=== PATIENT | female | born 1950 | race American Indian/Alaskan Native ===

== ENCOUNTER 2017-08-13 12:13 | Emergency (ER) | payer MEDICARE ==
[2017-08-13 12:52] LABS: Hematocrit 43.6 % (30.3-42.9); Hemoglobin 14.2 gm/dl (10.1-14.3); Mean Corpuscular HGB Conc 33 % (30-34); Mean Corpuscular Hemoglobin 28 pg (28-32); Mean Corpuscular Volume 86 fl (79-97); Platelet Count 261 K/mm3 (140-440); Red Blood Count 5.08 M/mm3 (3.65-5.03); Red Cell Distribution Width 14.9 % (13.2-15.2); White Blood Count 11.3 K/mm3 (4.5-11.0)
[2017-08-13 13:11] LABS: Alanine Aminotransferase 14 units/L (7-56); Albumin 4.4 g/dL (3.9-5); Albumin/Globulin Ratio 1.1 %; Alkaline Phosphatase 69 units/L (35-129); Anion Gap 22 mmol/L; BUN/Creatinine Ratio 26; Blood Urea Nitrogen 26 mg/dL (7-17); Calcium 9.9 mg/dL (8.4-10.2); Carbon Dioxide 23 mmol/L (22-30); Chloride 96.1 mmol/L (98-107); Glucose 201 mg/dL (65-100); Lipase 27 units/L (13-60); Potassium 3.8 mmol/L (3.6-5.0); Sodium 137 mmol/L (137-145); Total Protein 8.4 g/dL (6.3-8.2)
[2017-08-13 14:25] LABS: Blastocytes % (Manual) 0 %
[2017-08-13 14:26] LABS: Anisocytosis 1+; Diff Status Complete; Platelet Estimate Consistent w Auto
--- NOTE | 2017-08-13 16:34 | Emergency Department Report ---
ED Abdominal Pain HPI - General Chief Complaint: Abdominal Pain Stated Complaint: ABD PAINS Time Seen by Provider: 08/13/17 16:24 Source: patient Mode of arrival: Ambulatory Limitations: No Limitations - History of Present Illness Initial Comments: Patient is a 66 years old female coming today with abdominal pain that started this morning while she was at [employer]. Patient described her pain as right upper quadrant pain started all of a sudden moved to her left upper quadrant. Patient stated she had multiple episode of the same pain in the last few weeks but she did not seek any medical attention for it because it usually will go away by itself. Patient denied nausea vomiting or diarrhea. Denied any urinary symptoms and no fever. MD Complaint: abdominal pain -: Sudden, This morning Location: LUQ, RUQ Radiation: none Migration to: no migration Quality: stabbing Improves With: movement - Related Data Allergies Allergy/AdvReac Type Severity Reaction Status Date / Time No Known Allergies Allergy Verified 08/13/17 12:25 ED Review of Systems ROS: Stated complaint: ABD PAINS Other details as noted in HPI Comment: All other systems reviewed and negative Constitutional: denies: chills, fever Respiratory: denies: cough, orthopnea, shortness of breath, SOB with exertion Cardiovascular: palpitations. denies: chest pain, dyspnea on exertion, syncope , paroxysmal nocturnal dyspnea Gastrointestinal: abdominal pain. denies: nausea, vomiting, diarrhea, constipation, hematemesis, melena, hematochezia Genitourinary: denies: urgency, dysuria, frequency, hematuria Neurological: denies: headache, weakness, numbness, paresthesias ED Past Medical Hx - Past Medical History Previous Medical History?: Yes Hx Hypertension: Yes Hx Diabetes: Yes Additional medical history: back problems - Surgical History Past Surgical History?: Yes Additional Surgical History: left shoulder, left knee,thumb - Social History Smoking Status: Never Smoker Substance Use Type: None ED Physical Exam - General Limitations: No Limitations General appearance: alert, in no apparent distress - Head Head exam: Present: normocephalic - ENT ENT exam: Present: normal exam - Neck Neck exam: Present: normal inspection. Absent: tenderness, meningismus - Respiratory Respiratory exam: Present: normal lung sounds bilaterally. Absent: respiratory distress, wheezes, rales, rhonchi, chest wall tenderness, decreased breath sounds - Cardiovascular Cardiovascular Exam: Present: tachycardia. Absent: systolic murmur, diastolic murmur - GI/Abdominal GI/Abdominal exam: Present: soft, tenderness (diffuse tenderness), normal bowel sounds. Absent: distended, guarding, rebound, rigid, hyperactive bowel sounds, mass, bruit, pulsatile mass, hernia - Extremities Exam Extremities exam: Present: normal inspection, full ROM, normal capillary refill - Back Exam Back exam: Present: normal inspection. Absent: CVA tenderness (R), CVA tenderness (L) - Neurological Exam Neurological exam: Present: alert, oriented X3, CN II-XII intact, normal gait - Skin Skin exam: Present: warm, normal color. Absent: dry, intact ED Course Vital Signs 08/13/17 08/13/17 08/13/17 12:19 13:24 13:30 Temperature 97.7 F Pulse Rate 110 H 121 H 108 H Respiratory 20 21 17 Rate Blood Pressure 120/85 131/103 O2 Sat by Pulse 97 96 Oximetry 08/13/17 08/13/17 08/13/17 13:46 14:00 14:16 Temperature Pulse Rate 106 H 104 H 98 H Respiratory 12 16 17 Rate Blood Pressure 105/76 114/71 114/71 O2 Sat by Pulse 94 96 93 Oximetry 08/13/17 08/13/17 08/13/17 14:28 14:30 15:24 Temperature 97.8 F Pulse Rate Respiratory 12 Rate Blood Pressure 114/71 O2 Sat by Pulse 94 94 Oximetry 08/13/17 08/13/17 08/13/17 15:30 15:46 16:00 Temperature Pulse Rate Respiratory 17 13 13 Rate Blood Pressure 111/62 111/62 O2 Sat by Pulse 93 99 99 Oximetry - Reevaluation(s) Reevaluation #1: 08/13/17 19:09 Patient stated that she is feeling much better. Her abdominal pain is completely resolved. ED Medical Decision Making - Lab Data Result diagrams: 08/13/17 12:30 08/13/17 12:30 - EKG Data -: EKG Interpreted by Me EKG shows normal: sinus rhythm - EKG Data Interpretation: no acute changes - Radiology Data Radiology results: report reviewed CT abdomen and pelvis unremarkable for acute finding Critical care attestation.: If time is entered above; I have spent that time in minutes in the direct care of this critically ill patient, excluding procedure time. ED Disposition Clinical Impression: Abdominal pain, UTI (urinary tract infection), Constipation Disposition: - TO HOME OR SELFCARE Is pt being admited?: No Condition: Stable Instructions: Abdominal Pain (ED), Constipation (ED), High Fiber Diet (ED), Urinary Tract Infection in Women (ED) Referrals: PRIMARY CARE,MD [Primary Care Provider] - 3-5 Days
--- NOTE | 2017-08-13 18:08 | Cat Scan Report ---
FINAL REPORT EXAM: CT ABDOMEN PELVIS W CON HISTORY: abdominal pain TECHNIQUE: Standard enhanced CT of the abdomen and pelvis. Delayed imaging through the kidneys and bladder was obtained. Coronal and sagittal reconstruction was also performed. Contrast: 100 mL Omnipaque 300 given IV. PRIORS: None. FINDINGS: Within the abdomen, the liver, spleen, pancreas, gallbladder, and adrenal glands are unremarkable. There are subtle 4 mm hypodensities off the posterior left kidney and lower pole right kidney, too small to characterize but statistically likely a cyst. A larger 1.1 x 0.8 cm hypodense cyst in the upper pole left kidney is noted. No evidence for retroperitoneal or pelvic lymphadenopathy is seen. Moderate stool is present throughout the entire colon. The bowel loops have normal caliber. No soft tissue mass, fluid collection, inflammatory change, or free air is seen within the abdomen or pelvis. The appendix is normal. Within the pelvis, the bladder is unremarkable. Bilateral ureteral jets are seen. The uterus has been surgically removed. No evidence for mass or lymphadenopathy is seen in the pelvis. Images through the upper abdomen include the lung bases which are expanded and clear. Bony structures show no focal abnormalities and are intact. IMPRESSION: No acute intra-abdominal process noted. Several subtle hypodensities in the kidneys, statistically likely cysts.
[2017-08-13 18:48] LABS: Bilirubin,Urine NEG (Negative); Blood,Urine NEG (Negative); Ketones,Urine NEG (Negative)
[2017-08-13 18:49] LABS: Bacteria,Urine 1+ /HPF (Negative); Leukocyte Esterase,Urine SM (Negative); Mucus,Urine FEW /HPF; Nitrite,Urine NEG (Negative); Protein,Urine <15 mg/dL mg/dL (Negative)
[2017-08-13 19:58] VITALS: BP 112/62
== END 2017-08-13 19:35 | disposition home or self-care (01) ==
LOC: ED 12:13
DX: R10.12 Left upper quadrant pain (principal); R10.11 Right upper quadrant pain; N39.0 Urinary tract infection, site not specified; K59.00 Constipation, unspecified; I10 Essential (primary) hypertension; E11.9 Type 2 diabetes mellitus without complications
CPT/HCPCS: 36415; 74177; 80053; 81001; 83690; 84484; 85007; 85025; 99284; Q9967